=== PATIENT | female | born 1980 | race Caucasian/White ===

== ENCOUNTER → 2021-01-25 15:40 | Outpatient (CLI) | payer OTHER, SELFPAY ==
--- NOTE | ~2021-01-25 | XR_ITS ---
EXAMINATION: XR lumbar spine 2-3V DATE: 01/25/2021 15:52 INDICATION: Back pain TECHNIQUE: Anteroposterior and lateral views of the lumbar spine, and cone-down lateral view of the l umbosacral junction were obtained. COMPARISON: 05/29/2014 FINDINGS: There is no fracture, dislocation, or subluxation. The vertebral body heights, alignment, a nd intervertebral disc spaces are normal. The paravertebral soft tissues are unremarkable. Subtle lev ocurvature of the lumbar spine is stable. IMPRESSION: 1. No acute osseous abnormality. Reviewed, dictated and finalized at location A. 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
== END ==
PROVIDERS: Visit Provider Nurse Practitioner Family
DX: M54.5 Low back pain (principal)
CPT/HCPCS: 72100

== ENCOUNTER → 2021-05-07 15:59 | Outpatient (CLI) | payer OTHER, SELFPAY ==
--- NOTE | ~2021-05-07 | XR_ITS ---
XR knee RT min 4V DATE: 05/07/2021 16:40 INDICATION: Knee pain TECHNIQUE: [place] and standing AP, PA and lateral views COMPARISON: None FINDINGS: No fracture, dislocation, joint effusion, periosteal reaction or bone destruction no radiop aque intra-articular loose body or chondrocalcinosis. Joint spaces appear well preserved. IMPRESSION: Negative Reviewed, dictated and finalized at location A. IMPRESSION: Negative
--- NOTE | ~2021-05-07 | XR_ITS ---
XR knee LT min 4V DATE: 05/07/2021 16:40 INDICATION: Right knee pain TECHNIQUE: [employer], standing AP, PA and lateral views COMPARISON: None FINDINGS: No fracture or dislocation, joint space narrowing, radiopaque interarticular loose body or chondrocalcinosis. No periosteal reaction or bone destruction. IMPRESSION: No significant abnormality Reviewed, dictated and finalized at location A. IMPRESSION: No significant abnormality
== END ==
PROVIDERS: PCP Family Medicine; Visit Provider Nurse Practitioner Family
DX: M25.561 Pain in right knee (principal); M25.562 Pain in left knee
CPT/HCPCS: 73564

== ENCOUNTER → 2021-06-03 15:06 | Outpatient (CLI) | payer OTHER, SELFPAY ==
--- NOTE | ~2021-06-03 | MM_ITS ---
EXAMINATION: MM screening hakan BI w donnie HISTORY: Baseline screening mammogram TECHNIQUE: Craniocaudal and mediolateral oblique 3-D tomosynthesis images were obtained and synthetic 2-D images were generated. CAD analysis was submitted and interpreted. COMPARISON: None, baseline BREAST PARENCHYMAL COMPOSITION: The breasts are extremely dense, which lowers the sensitivity of mamm ography. FINDINGS: RIGHT BREAST: An asymmetry is present in the far posterior third of the breast on the mediolateral ob lique view. LEFT BREAST: An asymmetry is present in the posterior third of the slightly outer breast on the crani ocaudal view. IMPRESSION: 1. Bilateral breast findings as described above. 2. Additional mammographic views and possible breast ultrasound are recommended to evaluate for malig rae and establish a baseline given that this is the first mammographic examination. BI-RADS Category 0: Incomplete: Needs additional imaging evaluation. Reviewed, dictated and finalized at location A. IMPRESSION: 1. Bilateral breast findings as described above. 2. Additional mammographic views and possible breast ultrasound are recommended to evaluate for malignancy and establish a baseline given that this is the fir st mammographic examination. BI-RADS Category 0: Incomplete: Needs additional imaging evaluation.
== END ==
PROVIDERS: PCP Family Medicine; Visit Provider Obstetrics & Gynecology
DX: Z12.31 Encounter for screening mammogram for malignant neoplasm of breast (principal); R92.8 Other abnormal and inconclusive findings on diagnostic imaging of breast
CPT/HCPCS: 77063; 77067

== ENCOUNTER → 2021-07-15 13:51 | Outpatient (CLI) | payer OTHER, SELFPAY ==
--- NOTE | ~2021-07-15 | MMUS_ITS ---
EXAMINATION: MM diagnostic hakan BI w donnie, US breast RT limited HISTORY: Bilateral breast asymmetries on screening mammogram TECHNIQUE: Additional 3-D tomosynthesis images of the breasts were performed and synthetic 2-D images were generated. CAD analysis was submitted and interpreted. High resolution limited right breast ult rasound was performed. COMPARISON: 06/03/2021 BREAST PARENCHYMAL COMPOSITION: The breasts are heterogeneously dense, which may obscure small masses . FINDINGS: MAMMOGRAPHIC FINDINGS: There is a return to baseline fibroglandular appearance with spot compression of the breasts in the a reas questioned on screening mammogram. ULTRASOUND: There is a 9 mm x 4 mm oval, circumscribed, parallel, complex cystic and solid mass with no posterior features or internal vascularity at the 9:00 location 3 cm from the nipple. A 6 mm x 3 mm mass with similar sonographic features is present at the 8:00 location 4 cm from the nipple. There is a 5 mm x 3 mm oval, circumscribed, parallel, hypoechoic mass with no posterior features or internal vascularit y at the 10:00 location 4 cm from the nipple. IMPRESSION: 1. Probably benign right breast masses. 2. Recommend 6 month follow-up right diagnostic mammogram and ultrasound. BI-RADS category 3, probably benign findings. Reviewed, dictated and finalized at location A. IMPRESSION: 1. Probably benign right breast masses. 2. Recommend 6 month follow-up right diagnostic mammogram and ultrasound. BI-RADS category 3, probably benign findings.
== END ==
PROVIDERS: PCP Family Medicine; Visit Provider Obstetrics & Gynecology
DX: R92.8 Other abnormal and inconclusive findings on diagnostic imaging of breast (principal)
CPT/HCPCS: 76642; 77062; 77066; G0279

== ENCOUNTER → 2022-01-23 07:41 | Outpatient (CLI) | payer OTHER, SELFPAY ==
--- NOTE | ~2022-01-23 | MR_ITS ---
EXAMINATION: MR brain/brain stem wo/w con DATE: 01/23/2022 08:27 INDICATION: Migraine headache with aura and without status migrainosus. TECHNIQUE: Magnetic resonance imaging (MRI) of the brain and brainstem was performed without and with 13 mL MultiHance intravenous contrast. Sequences included sagittal and axial T1-weighted FSE, axial diffusion-weighted FS EPI, axial T2*-weighted GRE, axial T2-weighted FLAIR Propeller, and axial T2-we ighted Propeller. Postcontrast sequences included axial and coronal T1-weighted FSE. Apparent diffusi on coefficient (ADC) maps were created. COMPARISON: None. FINDINGS: There is no intracranial hemorrhage, acute infarction, or abnormal intracranial mass lesion . There is a small old infarct in right cerebellum. The ventricles are normal in size. The paranasal sinuses are clear. Vertebral body heights are normal. The mastoid air cells are normal. IMPRESSION: 1. Small old infarct in right cerebellum. Reviewed, dictated and finalized at location A. CTOR OF RESIDENCE LIFE
[2022-01-23 08:05] LABS: Estimated Glomerular Filt Rate 54
== END ==
PROVIDERS: PCP Family Medicine
DX: G43.109 Migraine with aura, not intractable, without status migrainosus (principal); I63.9 Cerebral infarction, unspecified
CPT/HCPCS: 70553; A9577

== ENCOUNTER → 2022-02-06 07:59 | Outpatient (CLI) | payer OTHER, SELFPAY ==
--- NOTE | ~2022-02-06 | MMUS_ITS ---
EXAMINATION: MM diagnostic hakan RT w donnie, US breast RT limited HISTORY: Six-month follow-up for probably benign right breast masses TECHNIQUE: Craniocaudal, mediolateral, and mediolateral oblique 3-D tomosynthesis images of the right breast were performed and synthetic 2-D images were generated. CAD analysis was submitted and interp reted. High resolution limited right breast ultrasound was performed. COMPARISON: 07/15/2021, 06/03/2021 BREAST PARENCHYMAL COMPOSITION: The breasts are heterogeneously dense, which may obscure small masses . FINDINGS: MAMMOGRAPHIC FINDINGS: There is no suspicious mass, calcification, or architectural distortion in the right breast malignanc y. There has been no suspicious interval change. ULTRASOUND: There is a 9 mm x 4 mm oval, circumscribed, parallel, complex cystic and solid mass with no posterior features or internal vascularity at the 9:00 location 3 cm from the nipple with slight increase in a cystic component. There is a cluster of microcysts at the 10:00 location 4 cm from the nipple. There is a 5 mm x 4 mm oval, circumscribed, parallel, hypoechoic mass with no posterior features or continuous improvement intern al vascularity at the 9:00 location 5 cm from the nipple. There is a probable complicated cyst at the 10:00 location 6 cm from the nipple. There is a 3 mm round, hypoechoic mass 1 cm from the nipple at the 10:00 location which appears to decreased in size since prior examination. IMPRESSION: 1. Probably benign right breast masses. 2. Recommend 6 month follow-up right diagnostic mammogram and ultrasound. BI-RADS category 3, probably benign findings. Reviewed, dictated and finalized at location A. IMPRESSION: 1. Probably benign right breast masses. 2. Recommend 6 month follow-up right diagnostic mammogram and ultrasound. BI-RADS category 3, probably benign findings.
== END ==
PROVIDERS: Visit Provider Obstetrics & Gynecology
DX: N63.10 Unspecified lump in the right breast, unspecified quadrant (principal); R92.8 Other abnormal and inconclusive findings on diagnostic imaging of breast
CPT/HCPCS: 76642; 77061; 77065; G0279

== ENCOUNTER 2022-09-23 13:16 | Emergency (ER) | payer OTHER, SELFPAY ==
[2022-09-23] VITALS (19 sets, daily range): BP systolic 110–134; BP diastolic 68–92; PULSE 54–85; RESP 13–20; TEMP 36.1–36.8; O2SAT 97–100
--- NOTE | ~2022-09-23 | XR_ITS ---
EXAMINATION: XR chest 2V Exam Date/Time: 09/23/2022 14:00 CDT HISTORY: MIDLINE CHEST PAIN, SOB, LEFT ARM TINGLING Comparison: None available. RESULT: Lines, tubes, and devices: None. Lungs and pleura: Clear. Cardiomediastinal silhouette: Unremarkable. Other: No acute osseous or upper abdominal finding. IMPRESSION: No acute cardiopulmonary process. Reviewed, dictated and finalized at location K.
--- NOTE | 2022-09-23 13:21 | ECG_ITS ---
Measurements Intervals [place] Rate: 52 P: 42 TN: 136 QRS: 49 QRSD: 90 T: 48 QT: 435 QTc: 407 Interpretive Statements SINUS BRADYCARDIA BORDERLINE ECG NO PREVIOUS ECG AVAILABLE FOR COMPARISON Electronically Signed On 09-23-2022 13:37:43 CDT by Samuel Soto D.O.
[2022-09-23 13:45] LABS: Basophils Percent Auto 0.3 % (0.2-1.2); Eosinophils Absolute Auto 0.1 K/mm3 (0-0.3); Eosinophils Percent Auto 0.9 % (0-4.4); Hematocrit 42.8 % (37.0-47.0); Hemoglobin 14.6 g/dL (12.0-15.0); Immature Granulocyte Absolute 0.02 K/mm3 (0.00-0.031); Immature Granulocyte Percent A 0.3 % (0-0.5); Lymphocytes Absolute Auto 2.15 K/mm3 (0.9-3.2); Lymphocytes Percent Auto 28.3 % (18.3-44.2); Mean Corpuscular HGB Conc 34.1 g/dl (32-36); Mean Corpuscular Hemoglobin 31.1 pg (26-34); Mean Corpuscular Volume 91.3 fl (80-100); Mean Platelet Volume 8.7 fl (7.4-10.4); Monocytes Absolute Auto 0.6 K/mm3 (0.1-0.6); Neutrophils Absolute Auto 4.7 K/mm3 (1.3-6.7); Neutrophils Percent Auto 62.2 % (45.5-73.1); Platelet Count Result 246 k/mm3 (150-375); Red Blood Count 4.69 M/mm3 (4.2-5.4); Red Cell Distribution Width 12.4 % (11.5-14.5); White Blood Count 7.6 K/mm3 (4.5-10.0)
[2022-09-23 13:58] LABS: Prothrombin Time 12.8 Seconds (11.1-14.7)
[2022-09-23 13:59] LABS: Partial Thromboplastin Time 24.8 SECONDS (22.3-36.8)
[2022-09-23 14:00] LABS: Alanine Aminotransferase 31 U/L (6-35); Albumin Level 4.6 g/dL (3.5-5.1); Alkaline Phosphatase 52 U/L (38-126); Anion Gap 13 mmol/L (8-16); Aspartate Amino Transferase 32 U/L (14-36); Bilirubin,Total 1.7 mg/dL (0.2-1.3); Blood Urea Nitrogen 18 mg/dL (7-17); Carbon Dioxide 22 mmol/L (22-30); Chloride 102 mmol/L (98-107); Estimated CRCL calculation 57 ml/min; Estimated Glomerular Filt Rate 54; Glucose 105 mg/dL (65-110); Lipase 110 U/L (23-300); Potassium 3.5 mmol/L (3.4-5.0); Sodium 137 mmol/L (137-145)
--- NOTE | 2022-09-23 14:07 | ED.CHESTPAIN ---
HPI - Chest Pain General Chief Complaint: Chest Pain Stated Complaint: chest pain with SOB - covid 3 weeks ago Time Seen by Provider: 09/23/22 13:47 History of Present Illness HPI narrative: 42-year-old female presented the emergency department for evaluation after an episode of chest pain. Patient states she had a few seconds of short sharp substernal chest pain. Patient states she then had a period of chest tightness. Patient states during this incident she did have pain that radiated to her left arm. Patient states this lasted approximately 5 minutes. After the 5 minutes patient states she still does have some residual chest tightness. Patient denies any prior cardiac history. Patient denies any prior history of PE or DVT. Patient denies any recent falls or injuries. Related Data Home Medications Medication Instructions Recorded Confirmed spironolactone 50 mg tablet 50 mg PO DAILY 05/07/21 08/29/22 Allergies Allergy/AdvReac Type Severity Reaction Status Date / Time No Known Allergies Allergy Unknown Verified 09/23/22 13:17 Review of Systems Review of Systems: CONSTITUTIONAL: Denies fever, chills, or sweats. EYES: Denies visual changes, redness, or discharge. ENT: Denies rhinorrhea, congestion, sore throat, or otalgia. CARDIOVASCULAR: See HPI RESPIRATORY: Denies cough or dyspnea. GASTROINTESTINAL: Denies abdominal pain, nausea, vomiting, or diarrhea. GENITOURINARY: Denies dysuria or hematuria. SKIN: Denies rash or itching. MUSCULOSKELETAL: Denies back pain, joint pain, or myalgia. NEUROLOGIC: Denies headache, numbness, or weakness. [facility] Past Medical History Medical History BMI 23.0-23.9, adult Encounter for insertion of mirena IUD Surgical History Surgical History H/O gynecological procedure mirena iud removal / reinsertion 01/28/2022 Family History Family History Father Hypertension Depression Cerebrovascular accident Mother Diabetes mellitus Alzheimers disease Sibling Alcoholism Depression Grandparent Diabetes mellitus Grandparent Diabetes mellitus Depression Cerebrovascular accident Other Carcinoma of colon Social History Social History Smoking status: Never smoker Tobacco type: cigarettes Second hand tobacco smoke exposure: Yes Alcohol intake: current Drinks per week: 6 Substance use: never Substance use type: does not use Additional living arrangements comments: and 3 kids 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 Gender identity (if verbalized by the patient): Female Sexual Orientation (if Verbalized by the Patient): Straight or Heterosexual Spiritual care concerns: No Agree to blood products: Yes Exam Narrative: APPEARANCE: Well appearing, no pain, no distress, well-nourished. HEAD: normocephalic, atraumatic. EYES: PERRLA/EOMI, conjunctivae clear. NOSE: Normal no drainage THROAT: Pharynx clear, no exudate. NECK: Supple. No adenopathy, no masses. RESPIRATORY: Airway patent, respirations nonlabored. Clear to auscultation bilaterally, no rales, rhonchi, wheezing. CARDIOVASCULAR: Regular rate and rhythm without murmurs rubs or gallops. ABDOMINAL: Soft, nontender, nondistended, normal bowel sounds MUSCULOSKELETAL: Moves all extremities. Strength/ROM intact, No edema, No calf tenderness. NEURO: Alert. Cranial nerves II through XII intact. Grossly intact SKIN: Warm, dry. Normal Color Course Course Emergency Course: Patient was afebrile with no leukocytosis. Patient had negative serial troponins. Patient had negative D-dimer. Patient's electrolytes were within her normal limits. Patient was negative for influenza and COVID. Chest x-ray showed no acute cardiopulmonary malady. L
[2022-09-23 14:11] LABS: Troponin I < 0.012 ng/mL (0.000-0.034)
[2022-09-23] MEDS: ASPIRIN 81 MG CHEWABLE TABLET 324 MG PO (14:17)
[2022-09-23] MEDS: ALBUTEROL SULFATE NEB 2.5 MG/3 ML INH 5 MG INHALATION (14:23)
[2022-09-23 14:29] LABS: D Dimer 0.34 ug/mL (<0.48)
[2022-09-23 15:05] LABS: Influenza A QL RT-PCR Negative (Negative); Influenza B QL RT-PCR Negative (Negative); SARS-CoV-2 RNA PCR Negative
[2022-09-23 17:00] LABS: Troponin I < 0.012 ng/mL (0.000-0.034)
== END 2022-09-23 17:36 | disposition home or self-care (01) ==
PROVIDERS: Emergency Provider Emergency Medicine; PCP Family Medicine
DX: R07.9 Chest pain, unspecified (principal); Z20.822 Contact with and (suspected) exposure to COVID-19; R00.1 Bradycardia, unspecified
CPT/HCPCS: 36415; 71046; 80053; 83690; 84484; 85025; 85380; 85610; 85730; 87502; 93005; 94640; 99284; A9270; U0003; U0005

== ENCOUNTER 2023-11-29 09:35 | Emergency (ER) | payer OTHER, SELFPAY ==
[2023-11-29 09:40] VITALS: BP 111/71; PULSE 69; RESP 16; TEMP 36.4; O2SAT 100
--- NOTE | 2023-11-29 10:03 | ED.GENADULT ---
HPI - General Adult General Chief complaint: Upper Respiratory Infection Stated complaint: COUGH/CONGESTION/SORE THROAT Source: patient Mode of arrival: ambulatory Limitations: no limitations History of Present Illness HPI narrative: Patient presents for evaluation of sick symptoms since 11/22/2023. Symptoms include fever, chills, headache, sinus congestion, mucopurulent discharge from the nares, ear pressure, sore throat, nausea, diarrhea, productive cough of green/yellow sputum. She was on a trip to [facility] and just got home yesterday. She has tried several OTC agents including sudafed and ibuprofen among other things. She does not smoke. Her recently had similar symptoms. Related Data Home Medications Medication Instructions Recorded Confirmed spironolactone 50 mg tablet 50 mg PO DAILY 05/07/21 11/29/23 levonorgestrel 21 mcg/24 hours (8 1 device intrauterine ONCE 06/10/23 11/29/23 yrs) 52 mg intrauterine device (Mirena) Allergies Allergy/AdvReac Type Severity Reaction Status Date / Time No Known Allergies Allergy Unknown Verified 11/29/23 09:39 Review of Systems Review of Systems: CONSTITUTIONAL: reports fever and chills. EYES: Denies visual changes, redness, or discharge. ENT: Reports sinus congestion, thick mucopurulent discharge from the nares, sore throat, bilateral ear pressure. CARDIOVASCULAR: Denies chest pain, palpitations, or edema. RESPIRATORY: Reports cough. Denies shortness of breath. GASTROINTESTINAL: Reports nausea and diarrhea. Denies vomiting. GENITOURINARY: Denies dysuria or hematuria. SKIN: Denies rash or itching. MUSCULOSKELETAL: Reports generalized body NEUROLOGIC: Reports headache. Denies numbness, dizziness, or weakness. PSYCHIATRIC: Denies anxiety or depression. [facility] Past Medical History Medical History BMI 23.0-23.9, adult Encounter for insertion of mirena IUD Surgical History Surgical History H/O gynecological procedure mirena iud removal / reinsertion 01/28/2022 Family History Family History Father Hypertension Depression Cerebrovascular accident Mother Diabetes mellitus Alzheimers disease Sibling Alcoholism Depression Grandparent Diabetes mellitus Grandparent Diabetes mellitus Depression Cerebrovascular accident Other Carcinoma of colon Social History Social History Smoking status: Never smoker Tobacco type: cigarettes Second hand tobacco smoke exposure: Yes Alcohol intake: current Drinks per week: 6 Substance use: never Substance use type: does not use Lack of Transportation: No Lack of Food: Never True Current Housing: I Have Housing Concerned About Future Housing: No Difficulty Paying Gas/Electric Bills: No Difficulty Paying for Meds: No Currently Unemployed: No Education: Bachelor's Degree Living arrangements: with family Additional living arrangements comments: and 3 kids Occupation/Education: occupation 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 Gender identity (if verbalized by the patient): Female Sexual Orientation (if Verbalized by the Patient): Straight or Heterosexual Spiritual care concerns: No Agree to blood products: Yes Exam Narrative: GENERAL: Appears acutely ill but nontoxic. well-nourished, and in no acute distress. HEAD: Normocephalic, atraumatic. EYES: PERRLA and EOMI. ENT: Nares clear, no rhinorrhea or epistaxis. Mucous membranes moist. Oropharynx without tonsillar hypertrophy exudate or other lesions. Bilateral TMs pearly avila nonbulging NECK: Supple. No adenopathy or masses. No carotid bruits or JVD CHEST:Diminished breath sounds bilaterally without presence of a
== END 2023-11-29 10:10 | disposition home or self-care (01) ==
PROVIDERS: Emergency Provider Nurse Practitioner; PCP Family Medicine
DX: J01.90 Acute sinusitis, unspecified (principal); B96.89 Other specified bacterial agents as the cause of diseases classified elsewhere; Z79.899 Other long term (current) drug therapy; Z20.822 Contact with and (suspected) exposure to COVID-19
CPT/HCPCS: 87081; 87426; 87804; 87880; 99213; C9803; G0463

== ENCOUNTER 2024-03-11 12:28 | Outpatient (CLI) | payer OTHER, SELFPAY ==
--- NOTE | ~2024-03-11 | MM_ITS ---
EXAMINATION: MM screening hakan BI w donnie HISTORY: Screening TECHNIQUE: Craniocaudal and mediolateral oblique 3-D tomosynthesis images were obtained and synthetic 2-D images were generated. CAD analysis was submitted and interpreted. COMPARISON: Comparison to multiple prior studies sequentially, with oldest reviewed study dated 06/03. BREAST PARENCHYMAL COMPOSITION: Additional FINDINGS: The right breast is stable without evidence for malignancy. There is a new mass in the uppe r outer quadrant of the left breast. IMPRESSION: 1. New low-density left breast mass, upper outer quadrant. 2. Additional mammographic views and possible breast ultrasound are recommended. BI-RADS Category 0: Incomplete: Needs additional imaging evaluation. Reviewed, dictated and finalized at location B. IMPRESSION: 1. New low-density left breast mass, upper outer quadrant. 2. Additional mammographic views and possible breast ultrasound are recommended . BI-RADS Category 0: Incomplete: Needs additional imaging evaluation.
== END 2024-03-11 12:29 ==
PROVIDERS: PCP Surgery Plastic and Reconstructive Surgery; Visit Provider Obstetrics & Gynecology
DX: Z12.31 Encounter for screening mammogram for malignant neoplasm of breast (principal); R92.8 Other abnormal and inconclusive findings on diagnostic imaging of breast
CPT/HCPCS: 77063; 77067

== ENCOUNTER 2024-04-05 08:45 | Outpatient (CLI) | payer OTHER, SELFPAY ==
--- NOTE | ~2024-04-05 | MM_ITS ---
EXAMINATION: MM diagnostic hakan LT w donnie HISTORY: Possible upper outer left breast mass TECHNIQUE: Additional 3-D tomosynthesis images of the upper, outer left breast were performed and syn thetic 2-D images were generated. CAD analysis was submitted and interpreted. COMPARISON: 03/11/2024 FINDINGS: The area of increased density at the upper, outer left breast effaces with spot compression . No persistent mass lesion or distortion seen. No suspicious mitral calcification. IMPRESSION: No mammographic evidence for malignancy. BI-RADS 1: Normal. Reviewed, dictated and finalized at location .
== END 2024-04-05 08:46 ==
LOC: MICIMG 08:46
PROVIDERS: PCP Surgery Plastic and Reconstructive Surgery; Visit Provider Obstetrics & Gynecology
DX: N63.20 Unspecified lump in the left breast, unspecified quadrant (principal)
CPT/HCPCS: 77061; 77065; G0279

== ENCOUNTER 2024-04-25 07:55 | Outpatient (CLI) | payer OTHER, SELFPAY ==
--- NOTE | 2024-04-25 08:03 | ECG_ITS ---
[facility] [address] Test Date: 2024-04-25 Pat Name: Denia Palmer Department: Room: Gender: F Contracting Analyst: : 1980 Requested By: Slade Ramos Order Number: [id number] Marcelino MD: John Wright M.D. Measurements Intervals [place] Rate: 56 P: 54 WI: 166 QRS: 57 QRSD: 89 T: 43 QT: 415 QTc: 401 Interpretive Statements SINUS BRADYCARDIA WITH SINUS ARRHYTHMIA WITHIN NORMAL LIMITS No previous ECG available for comparison Electronically Signed On 04-25-2024 14:46:46 CDT by John Wright M.D.
== END 2024-04-25 07:56 | disposition home or self-care (01) ==
LOC: ANHSURGERY 07:59
PROVIDERS: PCP Family Medicine; Visit Provider Surgery Plastic and Reconstructive Surgery
DX: Z01.818 Encounter for other preprocedural examination (principal); Z41.1 Encounter for cosmetic surgery
CPT/HCPCS: 93005

== ENCOUNTER 2024-04-28 00:30 | Day surgery (SDC) | payer OTHER, SELFPAY ==
--- NOTE | 2024-04-21 16:11 | PC.NURSE ---
Report to the Outpatient Waiting Room, entrance under the green pavilion located off [facility], at time 0600 on date 04/28/24. Planned Procedure Time: 0730. Time changes happen often and if your time is changed the preop area will call you the afternoon before. - You and your visitor will be asked to self-screen and do not enter if you have any COVID symptoms. - A mask is optional within the hospital at this time. Patients may have clear liquids (water, carbonated beverages, clear teas, apple juice) until 3 hours prior to surgery with a maximum of 20 ounces. 0430 - No food from midnight until time of surgery - Infants may have breast milk until 4 hours before surgery, formula 6 hours prior to surgery. - Children will be allowed to drink immediately following surgery. If applicable, please bring a bottle or sippy cup to assist with drinking. Juice, water, soda, and popsicles are readily available. For infants on formula, please bring formula the day of surgery. Pacifiers are allowed. Take the following medications with a SIP of water the morning of surgery: XANAX DO NOT STOP ANY OF YOUR OTHER PRESCRIPTION MEDICATIONS PRIOR TO SURGERY ?EXCEPT THE FOLLOWING Medications to discontinue per physician MULTIVITAMINS AND SUPPLEMENTS THREE DAYS PRIOR TO SURGERY Date to take last dose 04/25/24 Please no make-up, nail pitcairn islander, hairspray, perfume, deodorant, or body powder the day of surgery. No jewelry (including any body piercings) or valuables the day of surgery, leave them at home. Please take a shower or bath the night before, or the morning of, surgery with an antibacterial soap. Wear comfortable, loose fitting clothing. Children are encouraged to wear pajamas. - Jewelry must be removed prior to entering the operating room. Rings and piercings that are not removed may be cut off. - The hospital will not accept responsibility for valuables. - Please leave all valuables, including medications, at home the day of surgery. If you are going home after surgery, a licensed stock car driver must drive you home. - NO public transportation without another adult if you receive anesthesia. - We recommend that an adult stay with you for 24 hours following discharge. - We also recommend that you do not drive, make important decision, drink alcoholic beverages, or take any drugs that were not prescribed by your health care provider for at least 24 hours after your discharge time. For Pediatric surgeries, we recommend two adults accompany the child home. Follow any additional instructions given to you from your surgeon. If you or anyone in your household have experienced Covid symptoms in the past week, please notify your surgeon or the nurse liaison at the phone number below for possible testing. Telephone instructions given to [facility]- PATIENT and asked if any additional questions and then verbalized understanding. Patient advised to call surgeon office or pre surgery nurse liaison [phone] if any additional questions.
[2024-04-21 16:19] VITALS: BMI 22.8
[2024-04-28] VITALS (12 sets, daily range): BP systolic 100–123; BP diastolic 44–68; PULSE 67–102; RESP 12–16; TEMP 36.2–36.3; O2SAT 100
[2024-04-28] MEDS: LACTATED RINGERS 1,000 ML 30 ML IV CONT ×3 (06:48→13:07)
[2024-04-28 07:10] LABS: Urine Cotinine NEGATIVE
--- NOTE | 2024-04-28 07:23 | WPDHPUPDATE1 ---
History and Physical Update Update Date/Time: 04/28/24 07:23 History and Physical has been reviewed, including an updated exam of the patient. There are NO changes in the patient's condition. Risks, benefits, and alternatives have been discussed and questions answered. Patient agrees to proceed with procedure.
--- NOTE | 2024-04-28 07:24 | W.PM.PROC2 ---
Procedure Note - Detailed Date of Procedure 04/28/24 Pre-op Diagnosis Micromastia, Skin Laxity Post-op Diagnosis Same Procedure Performed 1. Bilateral augmentation mammaplasty 2. Progressive tension abdominoplasty with suction lipectomy Surgeon Jose Damico MD Anesthesia General Findings Bilateral Michael Amezcua SoftTouch 400cc Right - REF# [id number] SN [id number] Dual Plane 3 Left - REF# [id number] SN [id number] Dual Plane 3 Description of Procedure They are here today for the above procedures. Previously and again today the risks, benefits, alternatives were discussed in extensive detail. I wanted them to be very realistic about the risks involved as well as expectations. Discussed that she has a degree of glandular ptosis and she declines mastopexy today. She states she would do this as a second stage (at her expense) if she desires. She understands dual plane is not the same as mastopexy. she understands she may have a vertical scar on lower abdomen if umbilicus doesn't reach lower incision and we did discuss options. We discussed aftercare and what to monitor for. I was very upfront about the risks of wound breakdown leading to loss of skin, open wounds, and need for additional procedures with permanent abdominal deformity. We discussed DVT/PE risks and management. Made sure answered all of their questions to their satisfaction today and consent was obtained. They were marked in the preoperative holding area with their verification. The patient was taken to the operating room. Anesthesia was provided by anesthesiology. A Herron catheter was started. Posterior Placed prone on the operating room table with care taken to protect from injury. Prepped and draped in a standard sterile fashion. A surgical time-out was taken. Stab incisions were made and tumescent solution was infiltrated. Once adequate time was allowed for hemostasis a 4mm basket and 3mm multi hole cannula were utilized to complete suction lipectomy based on S.A.F.E. technique in multiple planes and passes. Suction lipectomy continued to result based on pre-operative planning, intra-operative observation, and rolling pinch test which were in full agreement. Patient was then placed supine with care taken to protect from injury. Breast 1% lidocaine and 0.25% Marcaine with epinephrine was used anesthetize as a field block. She was prepped and draped in a standard sterile fashion. Tegaderm nipple Maya were placed. A 15 blade used to make an incision along the inframammary fold. Dissection was continued at 45 degree angle until the chest wall as identified. Elevated above the pectoralis major as above. I incised the pectoralis major along its inferior border and completely released the inferior border leaving the medial border intact. I created a subpectoral pocket in the appropriate dimensions based on our preoperative planning for the implant. I then copiously irrigated with saline solution and verified a strict hemostasis. Next the use a triple antibiotic and Betadine containing solution to irrigate the pocket. I washed my gloves with the triple antibiotic and Betadine solution. We washed the implant immediately upon opening it with this solution and only opened it when we needed it. I used implant funnel and no-touch technique. The implant was introduced into the pocket using the funnel. Having verified positioning of the implant this was closed using 2-0 PDS followed by 3-0 Monocryl in a running subcuticular 4-0 Monocryl followed by tissue glue. Abdomen I placed the patient in a flexed position to verify the upper and lower markings would reach. I then placed supine. A thorough abdominal examination was completed. Stab incisions were made and tumescent solution infiltrated. Stab incisions were made and tumescent solution was infiltrated. Once adequate time was allowed for hemostasis a 4mm basket and 3mm multi hole cannula were utilized to complete suctio
--- NOTE | 2024-04-28 07:25 | WPDANESEPPF ---
Anes - Initial Pre Proc Eval Procedure: Operation Date: 04/28/24 07:30 Proposed Procedures p Abdominoplasty with Liposuction, - Jose Damico MD s Bilateral Breast Augmentation - Jose Damico MD Date/Time: 04/28/24 07:25 Surgeon: Jose Damico MD Pre Op Diagnosis: Micromastia, Skin Laxity Patient Data Age: 43 Gender: F Height: 1.7 m Weight: 67.2 kg Last Vital Signs Temp 97.2 F L 04/28/24 06:05 Pulse 72 04/28/24 06:05 BP 119/68 04/28/24 06:05 Pulse Ox 100 04/28/24 06:05 O2 Del Method Room Air 04/28/24 06:05 Allergies Allergy/AdvReac Type Severity Reaction Status Date / Time buspirone [From BuSpar] AdvReac Mild brain fog Verified 04/21/24 15:59 Home Medications Medication Instructions Recorded Confirmed Type spironolactone 50 mg tablet 100 mg PO QPM ACNE 05/07/21 04/21/24 History levonorgestrel 21 mcg/24 hr (up to 1 device intrauterine ONCE 06/10/23 04/21/24 History 8 years) 52 mg intrauterine device (Mirena) trazodone 50 mg tablet 50 mg PO .qhs #30 tabs 03/09/24 04/21/24 Rx alprazolam 0.5 mg tablet (Xanax) 0.5 mg PO DAILY PRN anxiety #30 04/06/24 04/28/24 Rx tabs Adults Multivitamin 1 tab-cap PO DAILY 04/21/24 04/21/24 History sumatriptan succinate 100 mg 50 mg PO TID PRN Migraine Headache 04/21/24 04/21/24 History tablet (Imitrex) Laboratory Tests 04/28/24 06:10 Cotinine Negative Patient hx anesthesia problems: none Family hx anesthesia problems: none Results Review: All pre-operative results and documents have been reviewed as part of the pre-operative evaluation. [facility] Past Medical History Medical History BMI 23.0-23.9, adult BMI 24.0-24.9, adult Encounter for insertion of mirena IUD Surgical History Surgical History H/O gynecological procedure mirena iud removal / reinsertion 01/28/2022 Family History Family History Father Hypertension Depression Cerebrovascular accident Mother Diabetes mellitus Alzheimers disease Sibling Alcoholism Depression Grandparent Diabetes mellitus Grandparent Diabetes mellitus Depression Cerebrovascular accident Other Carcinoma of colon Social History Social History Smoking packs per day: 0.5 Smoking cigarettes per day: 10.0 Years smoked: 10 Smoking pack-years: 5.00 Smoking status: Former smoker Tobacco type: cigarettes Second hand tobacco smoke exposure: Yes Alcohol intake: current Drinks per week: 4 Substance use: never Substance use type: does not use Lack of Transportation: No Lack of Food: Never True Current Housing: I Have Housing Concerned About Future Housing: No Difficulty Paying Gas/Electric Bills: No Difficulty Paying for Meds: No Currently Unemployed: No Education: Bachelor's Degree Living arrangements: with family Additional living arrangements comments: and 3 kids Occupation/Education: occupation 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 Gender identity (if verbalized by the patient): Female Sexual Orientation (if Verbalized by the Patient): Straight or Heterosexual Spiritual care concerns: No Agree to blood products: Yes Anes - Eval Final PreProcedure Day of Procedure 04/28/24 07:25 Patient weight: normal Heart: regular rate and rhythm Lungs: clear to auscultation Airway: Mallampati scale class II Neurological: alert and oriented Last oral intake: >/= 8 hours ASA classification: II Emergent: no Anesthetic plan: proceed Anesthesia type and monitoring: general ETT and standard monitoring Results Review: All pre-operative results and documents have been reviewed as part of the pre-operative evaluation. Informe
[2024-04-28] MEDS: ceFAZolin 2 GM/D5W 50 ML 2 GM/50 ML BAG IVPB (07:39)
[2024-04-28] MEDS: TRANEXAMIC ACID 1,000MG/ISO100 1,000 MG/100 ML BAG 200 MG IVPB (07:55)
[2024-04-28] MEDS: LIDO 1%/EPINEPHRINE 1:100,000 50 ML VIAL 30 ML INFILTRATE (09:04)
[2024-04-28] MEDS: BUPivacaine HCL 0.25% PF 30 ML VIAL INFILTRATE (09:04)
[2024-04-28] MEDS: NACL 0.9% IRRIG POUR BOTTLE 900 ML, GENTAMICIN SULFATE INJ 160 MG, ceFAZolin 2 GM, POVI... IRRIGATION (09:04)
[2024-04-28] MEDS: BUPIVACAINE/EPINEPHRINE 0.5% 10 ML VIAL 60 ML INFILTRATE (09:54)
--- NOTE | 2024-04-28 10:43 | SUR.OPER ---
[facility] 400CC RIGHT REF [facility]-400, SN [id number], EXP 2028-03-30. LEFT REF [facility]-400, SN [id number], EXP 2028-08-18.
[2024-04-28] MEDS: ceFAZolin SODIUM 1 GM VIAL IV PUSH (11:30)
[2024-04-28] MEDS: fentaNYL CITRATE INJ (*CRX) 100 MCG/2 ML VIAL 25 MCG IV PUSH ×4 (12:45→13:02)
[2024-04-28] MEDS: oxyCODONE HCL (*CRX) 5 MG TAB IR PO (14:05)
== END 2024-04-28 15:10 | disposition home or self-care (01) ==
PROVIDERS: PCP Family Medicine; Visit Provider Surgery Plastic and Reconstructive Surgery
PROC: (CPT 19325; principal; 2024-04-28 07:30)
PROC: (CPT 19325; 2024-04-28 07:30)
DX: Z41.1 Encounter for cosmetic surgery (principal); N64.82 Hypoplasia of breast; L57.4 Cutis laxa senilis; Z87.891 Personal history of nicotine dependence
CPT/HCPCS: 19325; 15830; 15847; 15877; 80307; A9270; J0171; J0690; J1100; J1170; J1580; J2250; J2405; J2704; J3010; J7030; J7120

== ENCOUNTER 2025-08-14 00:58 | Day surgery (SDC) | payer OTHER, SELFPAY ==
[2025-08-02 14:30] VITALS: BMI 22.6
--- OUTSIDE RECORDS SUMMARY | 2025-08-14 01:01 | XMS_ITS | Clinical Summary ---
Author Organization [facility] [address] Address [address] [place] [id number] Care Team Providers Care Pathology Laboratory Aide Name Role Phone Kevin Josue MD Primary Care Provider + [phone] Allergies No known active allergies Medications ALPRAZolam (XANAX) 0.5 mg tablet Take 0.5 mg by mouth as needed 08/28/2021 Active amitriptyline (ELAVIL) 10 mg tablet Take 10 mg by mouth nightly 10/22/2021 Active busPIRone (BUSPAR) 10 mg tablet Take 10 mg by mouth 2 (two) times a day 09/28/2021 Active diclofenac (CATAFLAM) 50 mg tablet Take 50 mg by mouth daily 09/23/2021 Active drospirenone, contraceptive, (Slynd) tablet tablet Take 1 tablet by mouth daily Active spironolactone (ALDACTONE) 100 mg tablet Take 100 mg by mouth daily 09/23/2021 Active SUMAtriptan (IMITREX) 100 mg tablet Take 100 mg by mouth as needed 09/23/2021 Active ubrogepant (UBRELVY) 50 mg tablet Take 50 mg by mouth daily as needed 10/15/2021 Active benzonatate (TESSALON) 200 mg capsuleIndicati ons:Positive self-administer ed antigen test for COVID-19 Take 1 capsule (200 mg total) by mouth 3 (three) times a day as needed for cough 30 capsule 08/31/2022 Active Active Problems No known active problems Social History Tobacco Use Types Packs/Day Years Used Date Smoking Tobacco: Never Smokeless Tobacco: Never Tobacco Cessation:Counseling Given: Not Answered Comments Unknown Sex and Gender Information Value Date Recorded Sex Assigned at Not on file Legal Sex Female 6:49 PM CDT Gender Identity Not on file Sexual Orientation Not on file Obstetrics History Last Filed Vital Signs Vital Sign Reading Time Taken Comments Blood Pressure 115/74 08/31/2022 9:04 AM CDT Pulse 75 08/31/2022 9:04 AM CDT Temperature 36.5 C (97.7 F) 08/31/2022 9:04 AM CDT Respiratory Rate 16 08/31/2022 9:04 AM CDT Oxygen Saturation 100% 08/31/2022 9:04 AM CDT Inhaled Oxygen Concentration - - Weight 69.3 kg (152 lb 11.2 oz) 08/31/2022 9:04 AM CDT Height - - Body Mass Index - - Plan of Treatment Health Maintenance Due Date Last Done Comments Breast Cancer Screening-Mammogram 1979 Cervical Cancer Screening 1979 Colon Cancer Screening-Colonoscopy 1979 Depression Screening 1979 Hepatitis C Screening 1979 Regular Well Visit/Exam 18-64 1997 HPV Vaccines (1 - 3-dose SCDM series) 2006 Covid-19 Vaccine ( season) 2025 06/02/2022, 10/07/2021, 01/11/2021, Additional history exists Influenza Vaccine (#1) 2025 , 07/24/2021, 08/30/2020, Additional history exists DTaP/Tdap/Td Vaccine (2 - Td or Tdap) 08/05/2031 08/05/2021 Hepatitis B Screening Completed 12/01/2019, 019 Pneumococcal vaccine <65 Aged Out No longer eligible based on patient's age to complete this topic Insurance [facility] CHOICE [facility] HMO/PPO Address: [address] [address] [place] [address] [facility] CLAIMS Care Teams Pathology Laboratory Aide Relationship Specialty Start Date End Date Kevin Josue MD PCP - General Family Medicine 08/31/22
--- OUTSIDE RECORDS SUMMARY | 2025-08-14 01:01 | XMS_ITS | Clinical Summary ---
Author Organization [facility] [employer] Address [address] [place] [address] Care Team Providers Care Photographic Specialist Name Role Phone Kevin Josue MD Primary Care Provider Source Comments [facility] [employer] [employer] [facility],non-owned Affiliates and Associated Physician Practices is amultiple site organization consisting of ambulatory clinics and hospital sitesin [place], [place], [place] and [place]. This disclosure is being madepursuant to the Care Everywhere program and may not contain all information available regarding this patient. Last updated 18.[facility] [employer] [employer] [facility] Allergies No known active allergies Medications * Be aware that medications may not be up to date on this document. Alwaysverify current medications with the patient. SUMAtriptan (IMITREX) 100 MG tablet Take 100 mg by mouth as needed 1 Active diclofenac potassium (CATAFLAM) 50 MG tablet Take 50 mg by mouth once daily 1 Active spironolactone (ALDACTONE) 100 MG tablet Take 100 mg by mouth once daily 1 Active busPIRone (BUSPAR) 10 MG tablet Take 10 mg by mouth 2 times daily 1 Active ALPRAZolam (XANAX) 0.5 MG tablet Take 0.5 mg by mouth as needed 1 Active Drospirenone (SLYND) 4 MG TABS tablet Take 1 tablet by mouth once daily Active ubrogepant (UBRELVY) 50 MG tabletIndication s:Migraine with aura and without status migrainosus, not intractable Take 1 (one) tablet by mouth once daily as needed for Migraine Maximum daily dose: 200mg/24 hours 9 tablet 4 1 Active amitriptyline (ELAVIL) 10 MG tablet Take 1 (one) tablet by mouth at bedtime 30 tablet 2 1 Active Immunizations Immunization Administration Dates Next Due INFLUENZA VACCINE 07/24/2021 Family History Medical History Relation Name Comments CVA Father Migraine Father Dementia Mother Relation Name Status Comments Father Alive Mother Alive Social History Tobacco Use Types Packs/Day Years Used Date Smoking Tobacco: Never Smokeless Tobacco: Never Alcohol Use Standard Drinks/Week Comments Yes 0 (1 standard drink = 0.6 oz pur e alcohol) occ Comments Unknown Sex and Gender Information Value Date Recorded Sex Assigned at Not on file Legal Sex Female 3:58 PM CDT Gender Identity Not on file Sexual Orientation Not on file Last Filed Vital Signs Vital Sign Reading Time Taken Comments Blood Pressure 103/65 10/09/2021 8:33 AM COMPLIANCE REVIEW SPECIALIST Pulse 55 10/09/2021 8:33 AM COMPLIANCE REVIEW SPECIALIST Temperature 36.4 C (97.5 F) 10/09/2021 8:33 AM COMPLIANCE REVIEW SPECIALIST Respiratory Rate - - Oxygen Saturation 99% 10/09/2021 8:33 AM COMPLIANCE REVIEW SPECIALIST Inhaled Oxygen Concentration - - Weight 66.2 kg (146 lb) 10/09/2021 8:33 AM COMPLIANCE REVIEW SPECIALIST Height - - Body Mass Index - - Plan of Treatment Health Maintenance Due Date Last Done Comments COLOGUARD (AGES 45-75) - COL ON CA SCREENING 1979 COLON MONITORING 1979 COLONOSCOPY - COLON CA SCREENING 1979 CT COLONOGRAPHY - COLON CA SCREENING 1979 Colorectal Cancer Screening 1979 FIT - COLON CA SCREENING 1979 FLEX SIG - COLON CA SCREENING 1979 LIPID TESTING 1979 MAMMOGRAM 1979 HIV SCREENING 1994 HEPATITIS C SCREENING 09/10/1997 DTAP/TDAP/TD VACCINES (1 - Tdap) 1998 HEPATITIS B VACCINE (1 of 3 - 19+ 3-dose series) 1998 HPV VACCINE (1 - 3-dose SCDM series) 2006 DEPRESSION SCREENING 11/23/2024 COVID-19 VACCINE (2023-2 5 season) 2025 INFLUENZA VACCINE (#1) 2025 07/24/2021 ZOSTER VACCINE (1 of 2) 2029 HIB VACCINE Aged Out No longer eligi ble based on patient's age to complete this topic MENINGOCOCCAL (Group B) VACC INE SHARED DECISION-MAKING Aged Out No longer eligibl e based on patient's age to complete this topic MENINGOCOCCAL GROUPS A/C/Y/W VACCINE Aged Out No longer eligible b ased on patient's age to complete this topic PNEUMOCOCCAL VACCINE Aged Out No long er eligible based on patient's age to complete this topic Insurance [facility] Address: [address] [address] [place] [address] [facility] [facility] [place] Care Teams Photographic Specialist Relationship Specialty Start Date End Date Kevin Josue MD [address] [place] [address] PCP - General 07/26/21
[2025-08-14 07:51] VITALS: BP 103/60; PULSE 80; RESP 16; TEMP 36.6; O2SAT 100
[2025-08-14 07:57] LABS: BEDSIDEPREGUCG Negative (Negative)
[2025-08-14] MEDS: LACTATED RINGERS 1,000 ML 150 ML IV CONT (08:02)
--- NOTE | 2025-08-14 08:47 | P.PNAN_ITS ---
Anes - Initial Pre Proc Eval Procedure: Operation Date: 08/14/25 09:00 Proposed Procedures p Screening Colonoscopy - Turner Knapp DO Date/Time: 08/14/25 08:47 Surgeon: Turner Knapp DO Pre Op Diagnosis: Neoplasm screening Patient Data Age: 44 Gender: F Height: 1.7 m Weight: 63.6 kg Last Vital Signs Temp 97.8 F 08/14/25 07:51 Pulse 80 08/14/25 07:51 Resp 16 08/14/25 07:51 BP 103/60 08/14/25 07:51 Pulse Ox 100 08/14/25 07:51 O2 Del Method Room Air 08/14/25 07:51 Allergies Allergy/AdvReac Type Severity Reaction Status Date / Time buspirone (From BuSpar) AdvReac Mild brain fog Verified 08/14/25 07:48 Home Medications ?Medication ?Instructions ?Recorded ?Confirmed ?Type levonorgestrel (Mirena) 1 device intrauterine ONCE 0 06/10/23 08/02/25 History semaglutide 0.25 mg or 0.5 mg (2 0.25 mg (0.368 mL) vinson bcut WEEKLY 11/11/24 08/02/25 Rx mg/3 mL) subcutaneous pen injector #3 mL estradiol 0.05 mg/24 hr semiweekly 1 patch transdermal 2XW #24 ea 06/01/25 08/14/25 Rx transdermal patch (Minivelle) trazodone 50 mg tablet 50 mg PO .qhs #30 tabs 06/1708/14/25 Rx alprazolam 0.5 mg tablet (Xanax) 0.5 mg PO DAILY PRN a nxiety #30 07/27/25 08/02/25 Rx tabs sumatriptan succinate 100 mg See Rx Instructions PO .C OMPLEX #9 07/27/25 08/02/25 Rx tablet (Imitrex) tabs Laboratory Tests 08/14/25 07:51 POC Urine HCG, Qual Negative (Negative) Patient hx anesthesia problems: none Family hx anesthesia problems: none Results Review: All pre-operative results and documents have been reviewed as part of the pre- operative evaluation. [facility] Past Medical History Medical History Encounter for cosmetic procedure 04/2024 tummy tuck with muscle repair, and lipo to flanks BMI 24.0-24.9, adult Encounter for insertion of mirena IUD BMI 23.0-23.9, adult Surgical History Surgical History H/O breast augmentation (~04/2024) H/O gynecological procedure mirena iud removal / reinsertion 01/28/2022 Family History Family History Father Hypertension Depression Cerebrovascular accident Mother Diabetes mellitus Alzheimers disease Sibling Alcoholism Depression Grandparent Diabetes mellitus Grandparent Diabetes mellitus Depression Cerebrovascular accident Other Carcinoma of colon Social History Social History Smoking packs per day: 0.5 Smoking cigarettes per day: 10.0 Years smoked: 10 Smoking pack-years: 5.00 Smoking status: Former smoker Tobacco type: cigarettes Second hand tobacco smoke exposure: Yes Alcohol intake: current Drinks per week: 4 Substance use: never Substance use type: does not use Lack of Transportation: No Lack of Food: Never True Current Housing: I Have Housing Concerned About Future Housing: No Difficulty Paying Gas/Electric Bills: No Difficulty Paying for Meds: No Currently Unemployed: No Education: Bachelor's Degree Living arrangements: with family Additional living arrangements comments: and 3 kids Occupation/Education: occupation 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 Gender identity (if verbalized by the patient): Female Sexual Orientation (if Verbalized by the Patient): Straight or Heterosexual Spiritual care concerns: No Agree to blood products: Yes Anes - Eval Final PreProcedure Day of Procedure 08/14/25 08:47 Patient weight: normal Lungs: normal air movement Airway: Mallampati scale class II Neurological: alert and oriented Last oral intake: >/= 8 hours ASA classification: II Emergent: no Anesthetic plan: proceed Anesthesia type and monitoring: general GIVS and standard monitoring Results Review: All pre-operative results and documents have been reviewed as part of the pre- operative evaluation. Migranes, hx of anxiety. Informed Consent: The patient's anesthetic plan and its attendant risks and benefits were discussed with the patient/family/POA. Questions were solicited and answers provided to the satisfaction of the patient/family/POA.
--- NOTE | 2025-08-14 09:14 | P.HP_ITS ---
H&P: HPI History of Present Illness Date/Time: 08/14/25 09:14 Chief Complaint: screening for colorectal cancer Narrative: this is a 44-year-old woman who presents for her 1st colonoscopy. She denies any hematochezia or melena. She does have a family history of colon cancer in a grandfather but no first-degree relatives. Review of Systems Review of Systems: All systems reviewed & are unremarkable except as noted in HPI and below Constitutional: Constitutional: Denies chills, Denies fever(s), Denies headache(s) and Denies weight loss Eyes: Eyes: Denies change in vision ENT: Denies dizziness, Denies headache(s), Denies neck mass and Denies throat swelling Cardiovascular: Cardiovascular: Denies chest pain, Denies lightheadedness and Denies dyspnea Respiratory: Respiratory: Denies cough, Denies dyspnea and Denies wheezing Gastrointestinal: Gastrointestinal: Denies abdominal pain, Denies change in bowel habits, Denies nausea and Denies vomiting Genitourinary: Genitourinary: Denies hematuria and Denies dysuria Musculoskeletal: Musculoskeletal: Reports as per HPI Integumentary/Breasts: Skin/Breast: Reports as per HPI Neurologic: Denies dizziness and Denies headache(s) Allergic/Immunologic: Allergic/Immunologic: Denies throat swelling and Denies wheezing PMFSH Past Medical History Medical History Encounter for cosmetic procedure 04/2024 tummy tuck with muscle repair, and lipo to flanks BMI 24.0-24.9, adult Encounter for insertion of mirena IUD BMI 23.0-23.9, adult Surgical History Surgical History H/O breast augmentation (~04/2024) H/O gynecological procedure mirena iud removal / reinsertion 01/28/2022 Family History Family History Father Hypertension Depression Cerebrovascular accident Mother Diabetes mellitus Alzheimers disease Sibling Alcoholism Depression Grandparent Diabetes mellitus Grandparent Diabetes mellitus Depression Cerebrovascular accident Other Carcinoma of colon Social History Social History Smoking packs per day: 0.5 Smoking cigarettes per day: 10.0 Years smoked: 10 Smoking pack-years: 5.00 Smoking status: Former smoker Tobacco type: cigarettes Second hand tobacco smoke exposure: Yes Alcohol intake: current Drinks per week: 4 Substance use: never Substance use type: does not use Lack of Transportation: No Lack of Food: Never True Current Housing: I Have Housing Concerned About Future Housing: No Difficulty Paying Gas/Electric Bills: No Difficulty Paying for Meds: No Currently Unemployed: No Education: Bachelor's Degree Living arrangements: with family Additional living arrangements comments: and 3 kids Occupation/Education: occupation 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 Gender identity (if verbalized by the patient): Female Sexual Orientation (if Verbalized by the Patient): Straight or Heterosexual Spiritual care concerns: No Agree to blood products: Yes Meds Home Medications and Allergies Home Medications ?Medication ?Instructions ?Recorded ?Confirmed ?Type levonorgestrel (Mirena) 1 device intrauterine ONCE 0 06/10/23 08/02/25 History semaglutide 0.25 mg or 0.5 mg (2 0.25 mg (0.368 mL) vinson bcut WEEKLY 11/11/24 08/02/25 Rx mg/3 mL) subcutaneous pen injector #3 mL estradiol 0.05 mg/24 hr semiweekly 1 patch transdermal 2XW #24 ea 06/01/2508/14 Rx transdermal patch (Minivelle) trazodone 50 mg tablet 50 mg PO .qhs #30 tabs 06/1708/14/25 Rx alprazolam 0.5 mg tablet (Xanax) 0.5 mg PO DAILY PRN a nxiety #30 07/27/25 08/02/25 Rx tabs sumatriptan succinate 100 mg See Rx Instructions PO .C OMPLEX #9 07/27/25 08/02/25 Rx tablet (Imitrex) tabs Allergies Allergy/AdvReac Type Severity Reaction Status Date / Time buspirone (From BuSpar) AdvReac Mild brain fog Verified 08/14/25 07:48 Vital Signs Vital Signs - 24 hr 08/14/25 07:51 Temperature 97.8 F Pulse Rate 80 Respiratory Rate 16 Blood Pressure 103/60 Pulse Oximetry 100 Oxygen Delivery Room Air Exam 2 Const: General: no acute distress and alert Orientation/consciousness: patient oriented x3 HENMT: Head: normocephalic and atraumatic Ears: hearing grossly normal bilaterally Face/Nose/Sinus: Normal nares present Mouth: Yes Normal oral and palatal mucosa present Eyes: Periorbital: periorbital findings normal Sclera: sclerae normal EOM: EOMs intact bilaterally Neck: Neck: normal visual inspection, no lymphadenopathy and trachea midline Chest: Chest palpation & inspection: normal inspection of the chest Resp: Effort & Inspection: normal respiratory effort Auscultation: clear to auscultation bilaterally Cardio: Jugular venous distension: no JVD Rate: regular rate Rhythm: regular rhythm Heart sounds: S1 normal heart sound present and S2 normal hear t sound present Peripheral pulses: Peripheral pulses 2+ throughout GI: Inspection: normal to inspection GI Palp: Yes Soft to palpation, No Tenderness to palpation present (GI), No Guarding due to palpation present (GI) and No Rebound tenderness present Percussion: Yes normal to percussion Auscultation: normal bowel sounds : General: Yes no CVA tenderness Back/Spine/Pelvis: Back: no CVA tenderness Neuro: General: patient oriented x3, no focal motor deficits and CN's II-XI intact bilaterally Cognition (Neuro): normal cognition Speech: normal speech Motor exam (neuro): 5/5 motor strength present throughout Extrem: General: capillary refill normal and no clubbing, cyanosis or edema Assessment and Plan Assessment and plan (1) Screening for colorectal cancer: Code(s): Z12.11 - Encounter for screening for malignant neoplasm of colon; Z12.12 - Encounter for screening for malignant neoplasm of rectum Status: Acute Assessment and Plan: I have recommended colonoscopy. I have discussed the procedure, risks, benefits, and alternatives. Questions were answered. Patient is agreeable to proceed.
[2025-08-14 09:41] VITALS: BP 89/47; PULSE 83; RESP 22; O2SAT 100
[2025-08-14 09:51] VITALS: BP 103/61; PULSE 81; RESP 25; O2SAT 100
[2025-08-14 10:01] VITALS: BP 103/66; PULSE 91; RESP 20; O2SAT 100
== END 2025-08-14 10:10 | disposition home or self-care (01) ==
PROVIDERS: Anesthesiology; PCP Family Medicine; Visit Provider Surgery
PROC: 0DJD8ZZ Inspection of Lower Intestinal Tract, Via Natural or Artificial Opening Endoscopic (ICD-10-PCS; CPT 45378; principal; 2025-08-14 09:00)
DX: Z12.11 Encounter for screening for malignant neoplasm of colon (principal); K57.30 Diverticulosis of large intestine without perforation or abscess without bleeding; Z87.891 Personal history of nicotine dependence
CPT/HCPCS: 45378; J2003; J2704; J7120